=== PATIENT | female | born 1980 | race Caucasian/White ===

== ENCOUNTER 2016-09-16 12:31 | Emergency (ER) | payer OTHER ==
[2016-09-16 12:50] VITALS: RESP 18
[2016-09-16] MEDS ORDERED: GELATIN SPONGE,ABSORB (SMALL) 1 EACH SPONGE TOPICAL STA (12:58)
[2016-09-16] MEDS ORDERED: DIPH,PERTUS(ACELL)TETVAC-LF 0.5 ML VIAL IM ONE (13:02)
--- NOTE | 2016-09-16 13:03 | ED ---
General Adult HPI - General Chief complaint: Wound/Laceration Stated complaint: Thumb Laceration Time Seen by Provider: 09/16/16 12:50 Source: patient, RN notes reviewed Mode of arrival: ambulatory Limitations: no limitations - History of Present Illness Initial comments: Patient 35-year-old female who presents to the emergency room today with a chief complaint of a laceration to the right thumb. 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 Does admit to a laceration to this area that she's been unable to control bleeding. States is unsure of tetanus status Patient denies any recent fever, chills, shortness of breath, chest pain, back pain, abdominal pain, nausea or vomiting, numbness or tingling, dysuria or hematuria, constipation or diarrhea, headaches or visual changes, or any other complaints. - Related Data Home Medications Medication Instructions Recorded Confirmed No Known Home Medications [No 09/16/16 09/16/16 Known Home Medications] Allergies Allergy/AdvReac Type Severity Reaction Status Date / Time No Known Allergies Allergy Verified 09/16/16 13:07 Review of Systems ROS Statement: Those systems with pertinent positive or pertinent negative responses have been documented in the HPI. ROS Other: All systems not noted in ROS Statement are negative. Past Medical History Past Medical History: No Reported History History of Any Multi-Drug Resistant Organisms: None Reported Past Surgical History: No Surgical Hx Reported, Unable to Obtain, Section Past Psychological History: No Psychological Hx Reported Smoking Status: Current every day smoker Past Alcohol Use History: Occasional Past Drug Use History: None Reported General Exam - General Exam Comments Initial Comments: General: The patient is awake and alert, in no distress, and does not appear acutely ill. Neck: The neck is supple, there is no tenderness or JVD. Cardiovascular: There is a regular rate and rhythm. No murmur, rub or gallop is appreciated. Respiratory: Lungs are clear to auscultation, respirations are non-labored, breath sounds are equal. No wheezes, stridor, rales, or rhonchi. Musculoskeletal: Full range motion. Sensation intact. Pulses equal bilaterally 2+. Strength 5/5. Neurological: A&O x 3. CN II-XII intact, There are no obvious motor or sensory deficits. Coordination appears grossly intact. Speech is normal. Skin: Partial activation of distal tip of the right thumb. Mild venous oozing. Psychiatric: Normal mood and affect. Limitations: no limitations Course Vital Signs 09/16/16 12:47 Temperature 98.4 F Pulse Rate 98 Respiratory 18 Rate Blood Pressure 159/93 O2 Sat by Pulse 99 Oximetry Procedures - Procedures Initial comment: Patient's right thumb was cleaned with saline. Small piece of Gelfoam used to placed on top. Patient was holding pressure. Bleeding has stopped. Gelfoam is in place. Nonstick dressing and sterile gauze placed over top. Medical Decision Making - Medical Decision Making Patient's laceration closed Gelfoam here in emergency room. Patient's tetanus updated. Will be discharged home advised follow-up family doctor return for any other concerns. Disposition Clinical Impression: Laceration Disposition: HOME SELF-CARE Condition: Good Instructions: Laceration (ED) Additional Instructions: Please allow the Gelfoam fall off on its own over the next 2 days. Please change dressing twice daily as discussed. Please return to emergency room if any symptoms increase or worsen or other concerns. Time of Disposition: 13:37
[2016-09-16 14:26] VITALS: BP 138/95; PULSE 80; TEMP 98.2
== END 2016-09-16 14:25 | disposition home or self-care (01) ==
LOC: EC 12:31 → SUPCPDRO 12:31 → EC 14:25
DX: S61.011A Laceration without foreign body of right thumb without damage to nail, initial encounter (principal); F17.200 Nicotine dependence, unspecified, uncomplicated; Z23 Encounter for immunization; W45.8XXA Other foreign body or object entering through skin, initial encounter
CPT/HCPCS: 90471; 90715; 99282

== ENCOUNTER 2020-08-24 18:02 | Emergency (ER) | payer OTHER ==
[2020-08-24 18:11] VITALS: BP 160/105; PULSE 112; RESP 17; TEMP 98.8
[2020-08-24] MEDS ORDERED: GELATIN SPONGE,ABSORB (SMALL) 1 EACH SPONGE TOPICAL STA ×2 (18:41→19:30)
[2020-08-24] MEDS ORDERED: LIDOCAINE/EPINEPHR/TETRACAINE 5 ML BOTTLE TOPICAL ONE (18:41)
--- NOTE | 2020-08-24 18:44 | ED ---
Wound/Laceration HPI - General Chief Complaint: Wound/Laceration Stated Complaint: finger lac Time Seen by Provider: 08/24/20 18:21 Source: patient Mode of arrival: ambulatory Limitations: no limitations - History of Present Illness Initial Comments: 39 year old female patient presents to the emergency department today for evaluation of laceration to the left index finger. Patient states she was cutting frozen turkey at work when she missed and sliced her finger. States that she's been unable to get the bleeding under control. States her last teta nus vaccine was within 2-3 years. Denies any other injuries. Denies use of anticoagulant or antiplatelet medications. Denies taking anything for pain. - Related Data Home Medications Medication Instructions Recorded Confirmed No Known Home Medications 09/16/16 09/16/16 Allergies Allergy/AdvReac Type Severity Reaction Status Date / Time No Known Allergies Allergy Verified 09/16/16 13:07 Review of Systems ROS Statement: Those systems with pertinent positive or pertinent negative responses have been documented in the HPI. ROS Other: All systems not noted in ROS Statement are negative. Past Medical History Past Medical History: No Reported History History of Any Multi-Drug Resistant Organisms: None Reported Past Surgical History: No Surgical Hx Reported, Unable to Obtain, Section Past Psychological History: No Psychological Hx Reported Smoking Status: Current every day smoker Past Alcohol Use History: Occasional Past Drug Use History: None Reported General Exam Limitations: no limitations General appearance: alert, in no apparent distress, other (This is a well- developed, well-nourished adult female patient in no acute distress. Vital signs upon presentation are temperature 98.8F, pulse 112, respirations 17, blood pressure 160/105, pulse ox 100% on room air.) Respiratory exam: Present: normal lung sounds bilaterally. Absent: respiratory distress, wheezes, rales, rhonchi, stridor Cardiovascular Exam: Present: regular rate, normal rhythm, normal heart sounds. Absent: systolic murmur, diastolic murmur, rubs, gallop, clicks Extremities exam: Present: full ROM, normal capillary refill, other (There is skin avulsion injury measuring about 3cm to the palmar surface of the left index finger. There is active bleeding. Full ROM in intact. No nail involvement. Skin is otherwise pink, warm, dry. Radial pulse 2+. ). Absent: tenderness, pedal edema, joint swelling, calf tenderness Neurological exam: Present: alert, oriented X3, CN II-XII intact Psychiatric exam: Present: normal affect, normal mood Skin exam: Present: warm, dry, intact, normal color. Absent: rash Course Vital Signs 08/24/20 18:08 Temperature 98.8 F Pulse Rate 112 H Respiratory 17 Rate Blood Pressure 160/105 O2 Sat by Pulse 100 Oximetry Medical Decision Making - Medical Decision Making 39-year-old female patient presented to the emergency department today for evaluation of wounds to the left index finger. Physical examination did reveal skin avulsion injury to the palmar surface of the left index finger. Let solution was applied for 20 minutes. This did improve bleeding. Did apply Gelfoam and pressure. Dressing was applied. Patient be discharged to follow-up with the primary care physician for recheck in 1-2 days. We did discuss wound care and signs or symptoms of infection. Return parameters were discussed in detail. She verbalizes understanding and agrees with this plan. My attending is Dr. Abdi. Disposition Clinical Impression: Avulsion of skin of finger, Open wound of left index finger Disposition: HOME SELF-CARE Condition: Good Instructions (If sedation given, give patient instructions): Skin Avulsion (ED) Additional Instructions: Keep dressing in place for 2 days. Afterwards keep clean and dry. Follow-up the primary care physician for recheck in 1-2 days. Return to the emergency department for any new, worsening, or concerning symptoms. Is patient prescribed a controlled substance at d/c from ED?: No Referrals: Pepe Vasquez DO [Primary Care Provider] - 1-2 days Time of Disposition: 19:54
== END 2020-08-24 20:01 | disposition home or self-care (01) ==
LOC: EC 18:02
DX: S61.211A Laceration without foreign body of left index finger without damage to nail, initial encounter (principal); F17.200 Nicotine dependence, unspecified, uncomplicated; W26.8XXA Contact with other sharp object(s), not elsewhere classified, initial encounter
CPT/HCPCS: 99282